=== PATIENT | female | born 1995 | race Caucasian/White ===

== ENCOUNTER 2017-08-15 08:56 | Emergency (ER) | payer BC, SELFPAY | END 2017-08-15 09:55 | disposition home or self-care (01) | LOC: ERS 08:56 | DX: B34.9 Viral infection, unspecified (principal) | CPT/HCPCS: 99283 ==

== ENCOUNTER 2017-12-14 12:03 | Emergency (ER) | payer BC, OTHER ==
[2017-12-14 12:50] LABS: Bilirubin Negative (Negative); Blood, Urine Negative (Negative); Clarity CLEAR (Clear); Glucose, Urine (Dipstick) Negative (Negative); Leukocyte Small (Negative); Nitrite Negative (Negative); Protein, Urine (Dipstick) Negative (Neg-Trace); Specific Gravity, Urine 1.024 (1.002-1.036); Urobilinogen 0.2 mg/dL (0.2-1.0); pH, Urine 5.5 (5.0-9.0)
[2017-12-14 12:54] LABS: Pregnancy Test - Urine (BHCG) Negative (Negative); Pregu Control Background? CLEAR/WHITE (CLR/WHITE); Pregu Control Bar Appear? YES (CONTROL BAR); Specific Gravity 1.024 (1.002-1.036)
[2017-12-14 12:56] LABS: Bacteria/HPF None Seen HPF (None Seen); Hyaline Casts/LPF 0-3 HYALINE CAST LPF (0-3 Hyaline); Pathc Cast-AUWi Flag 0.87 (0-2.49); RBC/HPF 0-3 HPF (0-3)
[2017-12-14 13:12] LABS: #Basophils 0.1 thou/uL (0.0-0.2); #Eosinphils 0.2 thou/uL (0.0-0.7); #Lymphocytes 2.9 thou/uL (1.20-3.40); #Monocytes 0.7 thou/uL (0.11-0.59); #Neutrophils 6.7 thou/uL (1.40-6.50); %Basophils 0.8 % (0.0-1.0); %Eosinophils 1.6 % (0.0-10.0); %Lymphocytes 27.4 % (21.0-51.0); %Monocytes 6.4 % (0.0-10.0); %Neutrophils 63.9 % (42.0-75.0); Hemoglobin 11.6 g/dL (12.0-16.0); Mean Corpuscular HGB CONC 33.7 g/dL (32.0-36.0); Mean Corpuscular Volume 80.3 fl (81.0-99.0); Mean Platelet Volume 7.4 fL (7.4-10.4); Platelet Count 278 thou/uL (130-400); RBC Distribution Width 12.5 % (11.5-14.5); Red Blood Cell (RBC) Count 4.28 mill/uL (4.20-5.40); White Blood Cell (WBC) Count 10.4 thou/uL (4.8-10.8)
[2017-12-14 13:31] LABS: ALT (SGPT) 18 U/L (8-55); AST (SGOT) 17 U/L (5-34); Albumin 3.8 g/dL (3.5-5.0); Alkaline Phosphatase 93 U/L (40-150); Anion Gap 10 mmol/L (10-20); BUN (Urea Nitrogen) 12 mg/dL (7.0-18.7); Bilirubin, Total 0.2 mg/dL (0.2-1.2); Calc. Creatinine Clearance 0 mL/min (70-130); Calcium 8.7 mg/dL (7.8-10.44); Carbon Dioxide 24 mmol/L (22-29); Chloride 105 mmol/L (98-107); Estimated GFR-MDRD Greater than 90; Globulin 3.4 g/dL (2.4-3.5); Glucose 85 mg/dL (70-105); Potassium 3.5 mmol/L (3.5-5.1); Protein, Total 7.2 g/dL (6.0-8.3); Sodium 135 mmol/L (136-145)
[2017-12-14] MEDS ORDERED: Ketorolac Tromethamine 60 MG/2 ML VIAL ONE (13:45)
--- NOTE | 2017-12-14 14:51 | ULT ---
PELVIC SONOGRAM TRANSABDOMINAL AND TRANSVAGINAL IMAGING WITH DUPLEX EVALUATION: Date: 12/14/17 HISTORY: Pelvic pain. FINDINGS: Urinary bladder is decompressed. Uterus has a heterogeneous echotexture. It is retroverted and 8.1 cm in length. Endometrium is 0.2 cm. A physiologic amount of free fluid is present within the [place]sa c. Right ovary is 3.5 cm. Left ovary is 3.0 cm. Each has a normal appearance with follicles and good color and spectral Doppler flow. IMPRESSION: Retroverted uterus. Normal pelvic sonogram. POS: [facility]
== END 2017-12-14 15:19 | disposition home or self-care (01) ==
LOC: ERS 12:03
DX: R10.32 Left lower quadrant pain (principal); D64.9 Anemia, unspecified; J45.909 Unspecified asthma, uncomplicated; E03.9 Hypothyroidism, unspecified
CPT/HCPCS: 36415; 76856; 80053; 81003; 81015; 81025; 85025; 96372; J1885

== ENCOUNTER 2018-01-02 09:15 | Emergency (ER) | payer BC ==
[2018-01-02] MEDS ORDERED: Acetaminophen 500 MG TAB ONE (09:45)
[2018-01-02] MEDS ORDERED: Ondansetron ODT 4 MG TAB ONE ×2 (09:45→12:56)
[2018-01-02 10:06] LABS: Hemoglobin 13.4 g/dL (12.0-16.0); Mean Corpuscular HGB CONC 32.7 g/dL (32.0-36.0); Mean Corpuscular Hemoglobin 26.2 pg (27.0-31.0); Mean Corpuscular Volume 80.3 fl (81.0-99.0); Mean Platelet Volume 8.3 fL (7.4-10.4); Platelet Count 279 thou/uL (130-400); RBC Distribution Width 12.7 % (11.5-14.5); Red Blood Cell (RBC) Count 5.12 mill/uL (4.20-5.40); White Blood Cell (WBC) Count 16.6 thou/uL (4.8-10.8)
[2018-01-02 10:16] LABS: Bilirubin Negative (Negative); Blood, Urine Negative (Negative); Clarity CLOUDY (Clear); Glucose, Urine (Dipstick) Negative (Negative); Leukocyte Moderate (Negative); Nitrite Negative (Negative); Protein, Urine (Dipstick) Negative (Neg-Trace); Specific Gravity, Urine 1.024 (1.002-1.036); pH, Urine 5.5 (5.0-9.0)
[2018-01-02 10:17] LABS: Band 10 % (5-11); Eosinophils 2 % (0-10); Lymphocytes 8 % (21-51); MDiff Complete? YES; Monocytes 7 % (0-10); Neutrophil 73 % (42-75); PLT Morphology Comment Appears Adequate; RBC Morphology Normal; Vacuoles SLIGHT
[2018-01-02 10:18] LABS: ALT (SGPT) 17 U/L (8-55); AST (SGOT) 19 U/L (5-34); Albumin 4.4 g/dL (3.5-5.0); Alkaline Phosphatase 111 U/L (40-150); Anion Gap 14 mmol/L (10-20); BUN (Urea Nitrogen) 15 mg/dL (7.0-18.7); Bilirubin, Total 0.6 mg/dL (0.2-1.2); Calc. Creatinine Clearance 0 mL/min (70-130); Calcium 9.2 mg/dL (7.8-10.44); Carbon Dioxide 23 mmol/L (22-29); Chloride 102 mmol/L (98-107); Estimated GFR-MDRD 90; Globulin 4.4 g/dL (2.4-3.5); Glucose 106 mg/dL (70-105); Potassium 3.5 mmol/L (3.5-5.1); Protein, Total 8.8 g/dL (6.0-8.3); Sodium 135 mmol/L (136-145)
[2018-01-02 10:20] LABS: Bacteria/HPF None Seen HPF (None Seen); Hyaline Casts/LPF 4-6 HYALINE CAST LPF (0-3 Hyaline); Pathc Cast-AUWi Flag 0.87 (0-2.49); Pregnancy Test - Urine (BHCG) Negative (Negative); Pregu Control Background? CLEAR/WHITE (CLR/WHITE); Pregu Control Bar Appear? YES (CONTROL BAR); Specific Gravity 1.024 (1.002-1.036)
[2018-01-02 10:28] LABS: Renal Epithelial None Seen HPF (0-3); Transitional Epithelial NONE SEEN HPF (0-3)
--- NOTE | 2018-01-02 13:51 | CT ---
CT ABDOMEN AND PELVIS WITH IV CONTRAST: 01/02/2018 HISTORY: Dizziness. Weakness. Right lower quadrant abdominal pain. COMPARISON: 02/16/2013 FINDINGS: The lung bases, liver, spleen, pancreas, bilateral adrenal glands, left kidney, abdominal aorta, urin sagar bladder, uterus, adnexal structures, and opacified bowel demonstrate a normal CT appearance. There is a stable subcentimeter, ofu-xmrgl-fu-characterize, hypodense lesion in the superior pole rig ht kidney. Given the stability over this period of time, this is likely related to a small right anil al cyst. The appendix is filled with contrast and is normal in caliber. There is suggestion of thickening inv olving the terminal ileum, but this is probably related to incomplete distention and peristalsis. Th e remainder of the opacified bowel is normal in caliber and demonstrates a normal CT appearance. There is no lymphadenopathy. No other interval change. Bilateral pars defects are seen at L5. IMPRESSION: 1. No CT evidence of appendicitis. 2. Appearance of thickening involving the terminal ileum, but this is likely attributable to incompl ete distention as opposed to thickening related to inflammatory bowel disease; however, if the patien t's symptoms persist, follow-up imaging can be performed. 3. Stable small right renal cyst. POS: [facility]
[2018-01-02] MEDS ORDERED: Ciprofloxacin 500 MG TAB ONE (14:27)
[2018-01-02] MEDS ORDERED: Iopamidol 370 76% 50 ML VIAL FS ONE (15:13)
[2018-01-02] MEDS ORDERED: ISOVUE-370 76%-LOCM 1 ML ONE (15:13)
== END 2018-01-02 14:39 | disposition home or self-care (01) ==
LOC: ERS 09:15
DX: N30.90 Cystitis, unspecified without hematuria (principal); D64.9 Anemia, unspecified; J45.909 Unspecified asthma, uncomplicated; E03.9 Hypothyroidism, unspecified
CPT/HCPCS: 74177; 80053; 81003; 81015; 81025; 85025; 87040; 87081; 87086; 87430; 93005; 96361; 96374; Q0162

== ENCOUNTER 2018-03-02 16:27 | Emergency (ER) | payer BC ==
[2018-03-02] MEDS ORDERED: Ketorolac Tromethamine 60 MG/2 ML VIAL ONE (17:11)
== END 2018-03-02 17:30 | disposition home or self-care (01) ==
LOC: ERS 16:27
DX: M75.101 Unspecified rotator cuff tear or rupture of right shoulder, not specified as traumatic (principal); D64.9 Anemia, unspecified; E03.9 Hypothyroidism, unspecified; J45.909 Unspecified asthma, uncomplicated
CPT/HCPCS: 96372; J1885

== ENCOUNTER 2018-05-08 09:02 | Emergency (ER) | payer BC ==
[~2018-05-08 09:02] MED LIST: ISOVUE-370 76%-LOCM 1 ML ONE
--- NOTE | 2018-05-08 09:30 | RAD ---
PORTABLE CHEST ONE VIEW: Date: 05-08-18 Time: 9:23 a.m. History: Shortness of breath, Chest pain. FINDINGS: The heart size is normal. The lungs are well expanded without focal areas of consolidation, pneumotho races, or pleural effusions. IMPRESSION: No radiographic evidence of acute cardiopulmonary process. POS: [facility]
[2018-05-08 09:47] LABS: #Eosinphils 0.2 thou/uL (0.0-0.7); #Lymphocytes 2.1 thou/uL (1.20-3.40); #Monocytes 0.6 thou/uL (0.11-0.59); #Neutrophils 3.6 thou/uL (1.40-6.50); %Basophils 0.2 % (0.0-1.0); %Eosinophils 2.9 % (0.0-10.0); %Lymphocytes 32.7 % (21.0-51.0); %Monocytes 8.5 % (0.0-10.0); %Neutrophils 55.8 % (42.0-75.0); Hemoglobin 11.2 g/dL (12.0-16.0); Mean Corpuscular HGB CONC 33.5 g/dL (32.0-36.0); Mean Corpuscular Hemoglobin 27.3 pg (27.0-31.0); Mean Corpuscular Volume 81.6 fL (78.0-98.0); Platelet Count 259 thou/uL (130-400); RBC Distribution Width 12.2 % (11.5-14.5); Red Blood Cell (RBC) Count 4.08 mill/uL (4.20-5.40); White Blood Cell (WBC) Count 6.5 thou/uL (4.8-10.8)
[2018-05-08 10:08] LABS: ALT (SGPT) 10 U/L (8-55); AST (SGOT) 11 U/L (5-34); Albumin 3.4 g/dL (3.5-5.0); Alkaline Phosphatase 78 U/L (40-150); Anion Gap 11 mmol/L (10-20); BUN (Urea Nitrogen) 11 mg/dL (7.0-18.7); Bilirubin, Total 0.2 mg/dL (0.2-1.2); Calc. Creatinine Clearance 0 mL/min (70-130); Calcium 8.4 mg/dL (7.8-10.44); Carbon Dioxide 21 mmol/L (22-29); Chloride 108 mmol/L (98-107); Estimated GFR-MDRD Greater than 90; Globulin 3.5 g/dL (2.4-3.5); Glucose 86 mg/dL (70-105); Potassium 3.6 mmol/L (3.5-5.1); Protein, Total 6.9 g/dL (6.0-8.3); Sodium 136 mmol/L (136-145)
--- NOTE | 2018-05-08 11:44 | CT ---
CT ANGIOGRAM OF CHEST: Date: 05/08/18 HISTORY: Shortness of breath. Chest tightness. Evaluate for pulmonary artery embolism. COMPARISON: None. TECHNIQUE: CT angiogram of the chest is performed in the axial plane. Three-dimensional reformatted images are s ubmitted for interpretation. FINDINGS: No mediastinal mass, lymphadenopathy, or hematoma. Heart size is within normal limits. No significant pericardial fluid. Upper solid organs are unremarkable. Heterogeneous thyroid gland. Nonemergent thyroid ultrasound is recommended. No evidence of axillary lymphadenopathy. Trachea and central bronchi are patent. No consolidation or mass. No pleural effusion. No pneumothorax or osseous abnormalities. The thoracic aorta and upper abdominal aorta have a normal caliber. No periaortic fat stranding. Adeq uate contrast opacification pulmonary arterial system to the level of the segmental arteries. No fill ing defect to suggest thromboembolism. IMPRESSION: No evidence of pulmonary artery embolism to level of segmental arteries. POS: [facility]
== END 2018-05-08 11:21 | disposition home or self-care (01) ==
LOC: ERS 09:02
DX: R06.02 Shortness of breath (principal); D64.9 Anemia, unspecified; J45.909 Unspecified asthma, uncomplicated; E03.9 Hypothyroidism, unspecified
CPT/HCPCS: 36415; 71045; 71275; 80053; 84443; 85025; 85379; 93005

== ENCOUNTER 2018-10-08 09:48 | Emergency (ER) | payer BC, SELFPAY | END 2018-10-08 10:59 | disposition home or self-care (01) | LOC: ERS 09:48 | DX: B34.9 Viral infection, unspecified (principal); D64.9 Anemia, unspecified; J45.909 Unspecified asthma, uncomplicated | CPT/HCPCS: 87804; 99281 ==

== ENCOUNTER 2019-01-30 14:10 | Emergency (ER) | payer SELFPAY ==
[2019-01-30 14:57] LABS: #Basophils 0.1 thou/uL (0.0-0.2); #Eosinphils 0.3 thou/uL (0.0-0.7); #Lymphocytes 2.9 thou/uL (1.20-3.40); #Monocytes 0.9 thou/uL (0.11-0.59); #Neutrophils 6.6 thou/uL (1.40-6.50); %Basophils 0.6 % (0.0-1.0); %Eosinophils 2.7 % (0.0-10.0); %Lymphocytes 27.2 % (21.0-51.0); %Monocytes 8.2 % (0.0-10.0); %Neutrophils 61.4 % (42.0-75.0); Hemoglobin 11.5 g/dL (12.0-16.0); Mean Corpuscular Hemoglobin 26.3 pg (27.0-31.0); Mean Corpuscular Volume 79.7 fL (78.0-98.0); Mean Platelet Volume 7.8 fL (7.4-10.4); Platelet Count 306 thou/uL (130-400); RBC Distribution Width 13.3 % (11.5-14.5); Red Blood Cell (RBC) Count 4.39 mill/uL (4.20-5.40); White Blood Cell (WBC) Count 10.7 thou/uL (4.8-10.8)
[2019-01-30 15:17] LABS: ALT (SGPT) 23 U/L (8-55); AST (SGOT) 18 U/L (5-34); Albumin 4.2 g/dL (3.5-5.0); Alkaline Phosphatase 106 U/L (40-150); Anion Gap 12 mmol/L (10-20); BUN (Urea Nitrogen) 13 mg/dL (7.0-18.7); Bilirubin, Total 0.2 mg/dL (0.2-1.2); Calc. Creatinine Clearance 0 mL/min (70-130); Calcium 9.3 mg/dL (7.8-10.44); Carbon Dioxide 27 mmol/L (22-29); Chloride 103 mmol/L (98-107); Estimated GFR-MDRD 88; Globulin 3.6 g/dL (2.4-3.5); Glucose 104 mg/dL (70-105); Potassium 3.6 mmol/L (3.5-5.1); Protein, Total 7.8 g/dL (6.0-8.3); Sodium 138 mmol/L (136-145)
[2019-01-30 15:40] LABS: Bilirubin Small (Negative); Blood, Urine Large (Negative); Clarity CLOUDY (Clear); Glucose, Urine (Dipstick) Negative (Negative); Leukocyte Small (Negative); Nitrite Negative (Negative); Protein, Urine (Dipstick) 100 mg/dL (Neg-Trace); Specific Gravity, Urine 1.043 (1.002-1.036); Urobilinogen 0.2 mg/dL (0.2-1.0)
[2019-01-30 15:42] LABS: Pregnancy Test - Urine (BHCG) Negative (Negative)
[2019-01-30 15:43] LABS: Pregu Control Background? CLEAR/WHITE (CLR/WHITE); Pregu Control Bar Appear? YES (CONTROL BAR); Specific Gravity 1.043 (1.002-1.036)
[2019-01-30 15:48] LABS: Bacteria/HPF 1+ HPF (None Seen); RBC/HPF GREATER THAN 50-TNTC HPF (0-3); Squamous Epithelial 21-50 HPF (0-3)
[2019-01-30 16:03] LABS: Hyaline Casts/LPF 0-3 HYALINE CAST LPF (0-3 Hyaline); Manual Microscopic Reviewed? No Path Casts Seen
--- NOTE | 2019-01-30 16:39 | CT ---
Noncontrast enhanced CT images abdomen pelvis. History: Lower back pain. The lung bases are unremarkable. No evidence of free intraperitoneal air seen. The liver, spleen, gallbladder, pancreas, adrenal glands and kidneys are unremarkable. There is a small approximately 3 mm hyperdense right renal cyst. No evidence of periaortic lymphadenopathy seen. No dilated loops of bowel seen. IMPRESSION: unremarkable noncontrast enhanced CT images of the abdomen and pelvis.
[2019-01-30] MEDS ORDERED: Ketorolac Tromethamine 30 MG/ML VIAL ONE (17:13)
== END 2019-01-30 17:28 | disposition home or self-care (01) ==
LOC: ERS 14:10
DX: N39.0 Urinary tract infection, site not specified (principal)
CPT/HCPCS: 36415; 74176; 80053; 81003; 81015; 81025; 85025; 96372; J1885

== ENCOUNTER 2019-09-04 16:45 | Emergency (ER) | payer BC, SELFPAY ==
[~2019-09-04 16:45] MED LIST changes: -ISOVUE-370 76%-LOCM 1 ML ONE; +Iopamidol-370 76% 500 ML 1 ML ONE
[2019-09-04 17:23] LABS: #Eosinphils 0.2 thou/uL (0.0-0.7); #Lymphocytes 3.5 thou/uL (1.20-3.40); #Neutrophils 7.2 thou/uL (1.40-6.50); %Basophils 0.4 % (0.0-1.0); %Eosinophils 1.8 % (0.0-10.0); %Lymphocytes 29.4 % (21.0-51.0); %Monocytes 8.2 % (0.0-10.0); %Neutrophils 60.2 % (42.0-75.0); Hemoglobin 11.2 g/dL (12.0-16.0); Mean Corpuscular HGB CONC 32.4 g/dL (32.0-36.0); Mean Corpuscular Hemoglobin 25.2 pg (27.0-31.0); Mean Corpuscular Volume 77.9 fL (78.0-98.0); Mean Platelet Volume 7.7 fL (7.4-10.4); Platelet Count 326 thou/uL (130-400); RBC Distribution Width 13.8 % (11.5-14.5); Red Blood Cell (RBC) Count 4.45 mill/uL (4.20-5.40)
[2019-09-04] MEDS ORDERED: Ketorolac Tromethamine 30 MG/ML VIAL ONE ×2 (17:31→20:33)
[2019-09-04] MEDS ORDERED: Ondansetron PF 4 MG/2 ML Vial ONE (17:31)
[2019-09-04 17:52] LABS: BHCG - Serum Negative (NEGATIVE); Pregs Control Background? CLEAR/WHITE (CLR/WHITE); Pregs Control Bar Appear? YES (CONTROL BAR)
[2019-09-04 17:55] LABS: ALT (SGPT) 36 U/L (8-55); AST (SGOT) 29 U/L (5-34); Albumin 3.8 g/dL (3.5-5.0); Alkaline Phosphatase 115 U/L (40-110); Anion Gap 13 mmol/L (10-20); BUN (Urea Nitrogen) 15 mg/dL (7.0-18.7); Bilirubin, Total 0.2 mg/dL (0.2-1.2); Calc. Creatinine Clearance 0 mL/min (70-130); Calcium 8.6 mg/dL (7.8-10.44); Carbon Dioxide 23 mmol/L (22-29); Chloride 104 mmol/L (98-107); Estimated GFR-MDRD Greater than 90; Globulin 4.4 g/dL (2.4-3.5); Glucose 91 mg/dL (70-105); Lipase 26 U/L (8-78); Potassium 3.8 mmol/L (3.5-5.1); Protein, Total 8.2 g/dL (6.0-8.3); Sodium 136 mmol/L (136-145)
[2019-09-04 18:07] LABS: Bilirubin Negative (Negative); Blood, Urine Negative (Negative); Clarity Turbid (Clear); Glucose, Urine (Dipstick) Normal (Negative); Leukocyte 500 Leu/uL (Negative); Mucous/LPF Rare LPF (<2+); Nitrite Negative (Negative); Protein, Urine (Dipstick) 30 mg/dL (Neg-Trace); RBC/HPF 0-3 HPF (0-3); Urobilinogen Normal mg/dL (Less than 2); WBC/HPF 0-3 HPF (0-3)
[2019-09-04 18:14] LABS: Bacteria/HPF 1+ HPF (None Seen)
--- NOTE | 2019-09-04 18:41 | ULT ---
RIGHT UPPER QUADRANT ULTRASOUND: 09/04/19 HISTORY: Right upper quadrant abdominal pain. COMPARISON: None. FINDINGS: Limited visualized portions of the pancreas, limited visualized portions of the IVC, and right kidney demonstrate a normal sonographic appearance. The right kidney measures 10.6 cm in length. The liver demonstrates increased echogenicity relative to the right kidney suggesting diffuse fatty i nfiltration. No focal hepatic lesion is identified. The gallbladder is contracted limiting adequate e valuation. The common duct measures 0.2 cm in diameter which is within normal limits. IMPRESSION: 1. Gallbladder is almost completely contracted and not well evaluated on this examination. While no obvious gallbladder calculus is seen, follow-up imaging after appropriate fasting is suggested if there is concern for gallbladder pathology. 2. Common duct is normal in caliber. 3. Fatty infiltration of the liver. POS: [facility]
--- NOTE | 2019-09-04 20:21 | CT ---
CT ABDOMEN AND PELVIS WITH IV CONTRAST: 09/04/19 HISTORY: Abdominal pain for two weeks. COMPARISON: Noncontrast CT abdomen and pelvis on 01/30/[address] exam on 01/02/18. FINDINGS: The lung bases are clear. Liver, spleen, pancreas, bilateral adrenal glands, left kidney, abdominal aorta, decompressed urinary bladder, and uterus as well as adnexal structures demonstrate a normal CT appearance for the patient 's age. A stable subcentimeter too small to characterize hypodense lesion is seen in the superior pole right kidney. Loops of small bowel are normal in caliber. Small amount of retained fecal material is seen throughou t the colon. The appendix is visualized and normal in caliber. Question of mild thickening involving the galarza of the terminal ileum on the prior study in 2018, but this is no appreciated on today's examination and findings may have been related to peristalsis on t he prior study. Bilateral pars defects at L5 are seen. No other interval change. IMPRESSION: 1. No acute findings in the abdomen or pelvis. 2. Stable small right renal cyst. 3. Spondylolysis L5. POS: [facility]
== END 2019-09-04 20:40 | disposition home or self-care (01) ==
LOC: ERS 16:45
DX: R10.11 Right upper quadrant pain (principal); G89.29 Other chronic pain; R11.0 Nausea; R50.9 Fever, unspecified; J45.909 Unspecified asthma, uncomplicated; E03.9 Hypothyroidism, unspecified; D64.9 Anemia, unspecified
CPT/HCPCS: 36415; 74177; 76705; 80053; 81003; 81015; 83690; 84703; 85025; 96361; 96374; 96375; 96376; J1885; J2405; Q9967

== ENCOUNTER 2020-05-10 17:51 | Emergency (ER) | payer SELFPAY ==
[2020-05-10 18:42] LABS: #Eosinphils 0.3 thou/uL (0.0-0.7); #Lymphocytes 3.9 thou/uL (1.20-3.40); #Monocytes 0.7 thou/uL (0.11-0.59); #Neutrophils 6.4 thou/uL (1.40-6.50); %Basophils 0.3 % (0.0-1.0); %Eosinophils 2.7 % (0.0-10.0); %Lymphocytes 34.8 % (21.0-51.0); %Monocytes 6.1 % (0.0-10.0); %Neutrophils 56.1 % (42.0-75.0); Mean Corpuscular HGB CONC 32.4 g/dL (32.0-36.0); Mean Corpuscular Hemoglobin 25.5 pg (27.0-31.0); Mean Corpuscular Volume 78.7 fL (78.0-98.0); Platelet Count 330 thou/uL (130-400); RBC Distribution Width 14.3 % (11.5-14.5); Red Blood Cell (RBC) Count 4.69 mill/uL (4.20-5.40); White Blood Cell (WBC) Count 11.3 thou/uL (4.8-10.8)
[2020-05-10 19:04] LABS: BHCG - Serum Negative (NEGATIVE); Pregs Control Background? CLEAR/WHITE (CLR/WHITE); Pregs Control Bar Appear? YES (CONTROL BAR)
[2020-05-10 19:10] LABS: ALT (SGPT) 39 U/L (8-55); AST (SGOT) 28 U/L (5-34); Alkaline Phosphatase 124 U/L (40-110); Anion Gap 15 mmol/L (10-20); BUN (Urea Nitrogen) 9 mg/dL (7.0-18.7); Bilirubin, Total 0.2 mg/dL (0.2-1.2); Calc. Creatinine Clearance 0 mL/min (70-130); Calcium 8.9 mg/dL (7.8-10.44); Carbon Dioxide 23 mmol/L (22-29); Chloride 102 mmol/L (98-107); Estimated GFR-MDRD Greater than 90; Globulin 4.2 g/dL (2.4-3.5); Glucose 99 mg/dL (70-105); Potassium 3.6 mmol/L (3.5-5.1); Protein, Total 8.2 g/dL (6.0-8.3); Sodium 136 mmol/L (136-145)
[2020-05-10 19:12] LABS: Bacteria/HPF None Seen HPF (None Seen); Bilirubin Negative (Negative); Blood, Urine Negative (Negative); Clarity Clear (Clear); Glucose, Urine (Dipstick) Normal (Negative); Ketone, Urine Negative (Negative); Leukocyte 75 Leu/uL (Negative); Nitrite Negative (Negative); Protein, Urine (Dipstick) Negative (Neg-Trace); RBC/HPF 0-3 HPF (0-3); Specific Gravity, Urine 1.007 (1.002-1.036); Squamous Epithelial 0-3 HPF (0-3); Urobilinogen Normal mg/dL (Less than 2); WBC/HPF 0-3 HPF (0-3)
[2020-05-10] MEDS ORDERED: Ketorolac Tromethamine 30 MG/ML VIAL ONE (19:54)
[2020-05-10] MEDS ORDERED: cefTRIAXone\\ROCEPHIN 250 MG VIAL ONE (20:07)
[2020-05-11 21:32] LABS: Chlamydia by PCR Not Detected (NotDetected); GC by PCR Not Detected (NotDetected)
== END 2020-05-10 20:12 | disposition home or self-care (01) ==
LOC: ERS 17:51
DX: N73.9 Female pelvic inflammatory disease, unspecified (principal); J45.909 Unspecified asthma, uncomplicated; D64.9 Anemia, unspecified
CPT/HCPCS: 36415; 80053; 81003; 81015; 84703; 85025; 87480; 87491; 87510; 87591; 87660; 96372; 99284; J0696; J1885

== ENCOUNTER 2020-09-08 11:42 | Emergency (ER) | payer SELFPAY ==
--- NOTE | 2020-09-08 12:51 | ULT ---
US Pelvic Transvag History: Pelvic pain Comparison: CT abdomen pelvis September 04, 2019 Findings: Real-time grayscale, color and spectral analysis of the pelvis was performed transabdominal and transvaginal approach. Twin intrauterine is present with average ultrasound age 8 week 2 day with estimated date o f delivery April 18, 2021. Both heart rates are normal. Trace subchorionic hemorrhage. Adequate vascular flow to both ovaries. Impression: Normal twin intrauterine with trace subchorionic hemorrhage.
[2020-09-08 12:56] LABS: Bilirubin Negative (Negative); Blood, Urine Negative (Negative); Clarity Turbid (Clear); Glucose, Urine (Dipstick) Normal (Negative); Ketone, Urine Negative (Negative); Leukocyte 500 Leu/uL (Negative); Nitrite Negative (Negative); Protein, Urine (Dipstick) 10 mg/dL (Neg-Trace); Specific Gravity, Urine 1.017 (1.002-1.036); Urobilinogen Normal mg/dL (Less than 2); Yeast-Budding 1+ HPF (None Seen); pH, Urine 6.5 (5.0-9.0)
[2020-09-08 12:57] LABS: Bacteria/HPF 1+ HPF (None Seen)
[2020-09-08] MEDS ORDERED: Acetaminophen 500 MG TAB ONE (13:01)
[2020-09-08 13:22] LABS: Glucose 73 mg/dL (70-105)
== END 2020-09-08 13:45 | disposition home or self-care (01) ==
LOC: ERS 11:42
DX: O98.811 Other maternal infectious and parasitic diseases complicating pregnancy, first trimester (principal); B37.3 Candidiasis of vulva and vagina; Z3A.09 9 weeks gestation of pregnancy; Z37.2 Twins, both liveborn
CPT/HCPCS: 36415; 76856; 81003; 81015; 82947

== ENCOUNTER 2020-12-05 20:34 | Emergency (ER) | payer BC, OTHER ==
[2020-12-05] MEDS ORDERED: hydrOXYzine 25 MG TAB ONE (23:19)
== END 2020-12-05 23:17 | disposition home or self-care (01) ==
LOC: ERS 20:34
DX: J03.90 Acute tonsillitis, unspecified (principal); L25.9 Unspecified contact dermatitis, unspecified cause; J45.909 Unspecified asthma, uncomplicated; D64.9 Anemia, unspecified; Z79.899 Other long term (current) drug therapy
CPT/HCPCS: 99283

== ENCOUNTER 2023-08-17 11:36 | Emergency (ER) | payer BC, MEDICAID, OTHER ==
[~2023-08-17 11:36] MED LIST changes: -Iopamidol-370 76% 500 ML 1 ML ONE; +Iopamidol-370 76% 500 ML MDV (1 ML CHARGE) ONE
[2023-08-17 12:24] LABS: #Basophils 0.1 thou/uL (0.0-0.2); #Eosinphils 0.2 thou/uL (0.0-0.7); #Monocytes 0.7 thou/uL (0.11-0.59); #Neutrophils 5.3 thou/uL (1.40-6.50); %Basophils 0.5 % (0.0-1.0); %Eosinophils 2.4 % (0.0-10.0); %Lymphocytes 32.6 % (21.0-51.0); %Monocytes 7.4 % (0.0-10.0); %Neutrophils 56.8 % (42.0-75.0); Hematocrit 40.2 % (36.0-47.0); Hemoglobin 12.9 g/dL (12.0-16.0); Mean Corpuscular HGB CONC 32.1 g/dL (32.0-36.0); Mean Corpuscular Hemoglobin 26.7 pg (27.0-31.0); Mean Corpuscular Volume 83.1 fl (78.0-98.0); Platelet Count 385 10x3/uL (130-400); RBC Distribution Width 14.3 % (11.5-14.5); Red Blood Cell (RBC) Count 4.84 mill/uL (4.20-5.40); White Blood Cell (WBC) Count 9.4 10x3/uL (4.8-10.8)
[2023-08-17] MEDS ORDERED: Ketorolac Tromethamine 30 MG/ML VIAL ONE (12:27)
[2023-08-17 12:47] LABS: ALT (SGPT) 43 U/L (8-55); AST (SGOT) 28 U/L (5-34); Alkaline Phosphatase 139 U/L (40-110); Anion Gap 13 mmol/L (10-20); BUN (Urea Nitrogen) 12 mg/dL (7.0-18.7); Bilirubin, Total 0.4 mg/dL (0.2-1.2); Calc. Creatinine Clearance 0 mL/min (70-130); Calcium 8.9 mg/dL (7.8-10.44); Carbon Dioxide 23 mmol/L (22-29); Chloride 101 mmol/L (98-107); Estimated GFR 119; Globulin 4.2 g/dL (2.4-3.5); Glucose 89 mg/dL (70-105); Lipase 28 U/L (8-78); Potassium 3.5 mmol/L (3.5-5.1); Protein, Total 8.2 g/dL (6.0-8.3); Sodium 133 mmol/L (136-145)
[2023-08-17 13:16] LABS: Bacteria/HPF 2+ HPF (None Seen); Bilirubin Negative (Negative); Blood, Urine 3+ (Negative); CAUTI Indications for Culture Pelvic or flank pain; Clarity Turbid (Clear); Glucose, Urine (Dipstick) Normal (Negative); Ketone, Urine Negative (Negative); Leukocyte 250 Leu/uL (Negative); Nitrite Negative (Negative); Protein, Urine (Dipstick) 10 mg/dL (Neg-Trace); Specific Gravity, Urine 1.022 (1.002-1.036); Urobilinogen Normal mg/dL (Less than 2); pH, Urine 6.5 (5.0-9.0)
[2023-08-17 13:17] LABS: Pregnancy Test - Urine (BHCG) Negative (Negative); Pregu Control Background? CLEAR/WHITE (CLR/WHITE); Pregu Control Bar Appear? YES (CONTROL BAR); Specific Gravity 1.022 (1.002-1.036)
[2023-08-17 13:18] LABS: Urine Culture Reflex Yes Yes
== END 2023-08-17 14:29 | disposition home or self-care (01) ==
LOC: ERS 11:36
DX: N39.0 Urinary tract infection, site not specified (principal); M51.36 Other intervertebral disc degeneration, lumbar region; V89.2XXA Person injured in unspecified motor-vehicle accident, traffic, initial encounter
CPT/HCPCS: 36415; 74177; 80053; 81001; 81025; 83690; 85025; 87086; 96374; J1885; Q9967